=== PATIENT | female | born 1960 | race Caucasian/White ===

== ENCOUNTER 2017-05-03 09:45 | Inpatient (IN) | payer OTHER ==
[~2017-05-03] VITALS: Ht 165.1 cm; Wt 84.8 kg
[2017-07-10] MEDS ORDERED: VENL1TAB35 PO (08:13)
[2017-07-10] MEDS ORDERED: IBUP-1114 PO (08:13)
[2017-07-10] MEDS ORDERED: VENL37TA PO (08:13)
[2017-07-10] MEDS ORDERED: LISI-538 PO (08:13)
[2017-07-10] MEDS ORDERED: NYQU1LIQ PO (08:34)
[2017-07-18] VITALS (8 sets, daily range): BP systolic 116–162; BP diastolic 60–91; O2SAT 95
[2017-07-18] MEDS ORDERED: LR 1,000 ML IV ONE (07:15)
[2017-07-18] MEDS ORDERED: TRANEXAMIC ACID 100 MG/ML 10ML VIAL IV ONE (07:15)
[2017-07-18] MEDS ORDERED: VANCOMYCIN HCL 1,000 MG, VIAL MATE ADAPTER 1 EACH in D5W 250 ML IV ONE (07:15)
[2017-07-18] MEDS ORDERED: NICODIS2 TD (07:48)
[2017-07-18] MEDS ORDERED: MIDAZOLAM INJ 2 MG/2 ML VIAL (J2250) As Ordered ONE ×3 (08:41→10:01)
[2017-07-18] MEDS ORDERED: fentaNYL 100 MCG/2 ML INJECTION (J3010) As Ordered ONE ×3 (08:41→12:28)
[2017-07-18] MEDS: NICOTINE 14 MG/24 HR TRANSDERMAL TD SCH (09:00)
[2017-07-18] MEDS: fentaNYL 100 MCG/2 ML INJECTION (J3010) IV SCH ×2 (09:05→09:11)
[2017-07-18] MEDS: MIDAZOLAM INJ 2 MG/2 ML VIAL (J2250) IV SCH ×2 (09:06→09:11)
[2017-07-18] MEDS ORDERED: CLINDAMYCIN INJ 900MG/6ML VIAL As Ordered ONE (09:15)
[2017-07-18] MEDS ORDERED: TRANEXAMIC ACID 100 MG/ML 10ML VIAL As Ordered ONE ×2 (09:15→09:26)
[2017-07-18] MEDS ORDERED: BUPIVACAINE LIPOSOME/PF 1.3% 20 ML VIAL (13.3MG/ML)(EXPAREL) As Ordered ONE (09:16)
[2017-07-18] MEDS ORDERED: PROPOFOL 200 MG/20 ML VIAL As Ordered ONE ×2 (09:20→10:42)
[2017-07-18] MEDS ORDERED: PHENYLEPHRINE INJ 10MG/ML VIAL (J2370) As Ordered ONE ×2 (10:01→10:42)
[2017-07-18] MEDS: fentaNYL 100 MCG/2 ML INJECTION (J3010) IV PRN ×8 (12:32→13:16)
[2017-07-18] MEDS ORDERED: PERCOCET 5MG/325MG TAB PO PRN ×2 (12:45)
[2017-07-18] MEDS ORDERED: METOCLOPRAMIDE INJ 10MG/2ML VIAL (J2765) IV PRN (12:45)
[2017-07-18] MEDS ORDERED: ONDANSETRON 4MG/2ML VIAL (J2405) IV PRN ×2 (12:45→13:00)
[2017-07-18] MEDS ORDERED: MEPERIDINE INJ 25 MG/ML VIAL (J2175) IV PRN (12:45)
[2017-07-18] MEDS ORDERED: LR 1,000 ML IV SCH (12:45)
[2017-07-18] MEDS ORDERED: ACETAMINOPHEN TAB 650MG DOSE (2X325MG) PO PRN (13:00)
--- NOTE | 2017-07-18 13:21 | REP ---
Right knee three views post op: There is a total knee arthroplasty with the components tightly applied and in satisfactory positions alignment on all views. Signed by Rob Vogt MD 07/18/2017 01:12 P
[2017-07-18] MEDS ORDERED: ROPIvacaine 0.5% 30 ML INJECTION (J2795 PER 1MG) ONE (14:53)
[2017-07-18] MEDS ORDERED: EPINEPHrine INJ 1 MG/ML 1ML AMP ONE (14:53)
[2017-07-18] MEDS: VANCOMYCIN HCL 1,000 MG, VIAL MATE ADAPTER 1 EACH in D5W 250 ML IV SCH ×2 (15:39→23:22)
[2017-07-18] MEDS: LISINOPRIL 20 MG TAB PO SCH (15:39)
[2017-07-18] MEDS: KETOROLAC 30 MG/ML VIAL (J1885) IV SCH ×2 (15:40→20:38)
[2017-07-18] MEDS: PERCOCET 5MG/325MG TAB PO PRN (18:24)
[2017-07-18] MEDS: CelecoXIB (CeleBREX) 100 MG CAP PO SCH (20:39)
--- NOTE | 2017-07-18 23:23 | RO ---
DATE OF PROCEDURE: 07/18/2017 PREOPERATIVE DIAGNOSIS: Right knee osteoarthritis. POSTOPERATIVE DIAGNOSIS: Right knee osteoarthritis. PROCEDURE PERFORMED: Right total knee arthroplasty. SURGEON: Luis Enrique Michaels MD ROLL TABLE OPERATOR: LING Sheth ANESTHESIA PROVIDER: Dr. Monique ANESTHESIA GIVEN: A single-shot adductor canal nerve block and a single-shot spinal. ANTIBIOTICS: 1 gram intravenous (IV) vancomycin given within 1 hour of incision. TOTAL TOURNIQUET TIME: 81 minutes 250 mmHg right thigh. IMPLANT USED: DePuy Sigma PFC size 2.5 cruciate-retaining femur, size 2.5 fixed-bearing tibia, with 10-mm polyethylene and 32-mm x 8-mm patellar polyethylene. COMPLICATIONS: None. ESTIMATED BLOOD LOSS: 100 mL. SPECIMEN SENT TO THE LABORATORY: Right knee bone. INDICATION FOR PROCEDURE: Lacey Cerrato is a 56-year-old female with longstanding right knee osteoarthritis, who has had a persistent increasing activity-limiting pain and has failed appropriate nonoperative management of knee osteoarthritis, to include activity modification, medication, exercise therapy, maintenance of healthy body weight, and injections, and has had persistent symptoms. I discussed with the patient the risks, benefits, indications, and alternatives of operative versus nonoperative management, and the patient elected to proceed with right total knee arthroplasty. Informed consent was obtained. INTRAOPERATIVE FINDINGS: There was significant tricompartmental osteoarthritis. The knee had a full passive range of motion and was stable after implants were placed. DESCRIPTION OF PROCEDURE: The patient was positively identified in the preoperative holding area, where the surgical site was marked. She was then brought to the operating room after being given adductor canal nerve block. She was given single-shot spinal anesthesia in the operating room. She was positioned supine on a regular table with all bony prominences appropriately padded. Sequential compression devices (SCDs) were placed on the nonoperative extremity for deep venous thrombosis (DVT) prophylaxis. She was prepped and draped in the usual sterile fashion. A final time-out was performed. I made a 15 cm incision longitudinally just medial to the midline of the knee. I dissected through skin and subcutaneous tissue. I created a medial skin flap to expose the medial retinaculum and vastus medialis obliquus (VMO). I then performed a medial parapatellar arthrotomy using the Bovie. On making the medial parapatellar arthrotomy, I dissected through the medial meniscus. I then performed a limited medial release with a combination of Bovie and curved osteotome. I then resected the synovium and fat pad of the anterior aspect of the distal femur. I then also resected part of the patellar fat pad. I performed a limited lateral release around the proximal tibial plateau over to Gerdy tubercle. This allowed for knee flexion and eversion of the patella. I then introduced the intramedullary drill for the femur and placed the intramedullary distal femoral cutting guide set to a 5-degree valgus cut and 10-mm thickness. The distal femur cut was made in standard fashion. This was then followed by placing the 3-degree externally rotated posterior referencing guide onto the distal femur and sized to a 2.5. The 4-in-1 cutting block, size 2.5, was then placed; and the anterior, posterior, and chamfer cuts were made on the distal femur in standard fashion. All osteophytes were removed from the distal femur. After completion of the femoral cuts, I then performed a resection of the anterior cruciate ligament (ACL) and resected the medial and lateral menisci. I then placed the extramedullary tibial guide and with appropriate slope, and I confirmed that it was perpendicular to the long axis of the tibia. After appropriately sizing the proximal tibial cut, the cutting block was placed, and the proximal tibia cut was made. The original proximal tibia was removed from the knee. After completion of the femoral and tibial cuts, I then introduced the curved osteotome and resected osteophytes from the posterior distal femur, both medially and laterally. At this point, I also took the opportunity to check the flexion gap, which was noted to be balanced. I then introduced the sizing blocks and found that the knee was well balanced with a 10-mm sizing block in both flexion and extension. Therefore, I elected to use a 10-mm polyethylene. At this point, I then performed the patellar resection. The patella was measured to approximately 22 mm in thickness. 8 mm was resected and replaced with 8-mm x 32-mm polyethylene. The drill holes for the patellar polyethylene were then drilled for later placement. The patellar trial was placed. I then placed a 2.5 size femoral trial. I then placed the tibial trial and floated the tibial tray to aid with placement of the tibial tray. The knee was noted to be tracking extremely well with the no-hands technique. After confirmation of the position and sizing of the proximal tibial tray, the charter pilot holes for both the femur and the tibia, including reaming for the keel, was performed. At this point, cement was mixed. The knee was thoroughly irrigated with normal saline to remove all blood and debris from the cancellous bone. At this opportunity, approximately 20 mL of Exparel expanded in 60 mL of saline was injected into the posterior capsule posterior cruciate ligament (PCL) medial and lateral periosteum and retinaculum was injected for later pain control. After completion of this, the femur and tibia and patella were thoroughly dried, and the size 2.5 fixed-bearing tibial tray with 10-mm polyethylene were inserted followed by implanting of the femoral component. The cement debris was removed from the knee that was brought into extension. Then, the patellar polyethylene was inserted. After all components were implanted and the cement was dried, the knee was brought through a range of motion and noted to be tracking excellently and was stable in both flexion and extension. At this point, about 2 grams of topical tranexamic acid (TXA) was applied into the wound, and the tourniquet was let down, 81 minutes. Hemostasis was obtained using Bovie electrocautery. The wound was then thoroughly irrigated with normal saline and closed in layers. The retinacular layer was closed with interrupted 0 Vicryl suture in figure-of-8 fashion, followed by a running barbed suture to obtain a watertight closure. This was then followed by an interrupted buried 2-0 Vicryl suture for the subcutaneous layer. Running 3-0 Monocryl for the skin. A Prineo Dermabond dressing was applied, followed by additional sterile dressing. This ended the procedure. I was present and scrubbed in for all critical portions of the case. POSTOPERATIVE PLAN: The patient will be weightbearing as tolerated to the right lower extremity. She will undergo total knee arthroplasty rehabilitation protocol. She will be admitted to the hospital for pain control and working with physical therapy, and she will be discharged home when criteria met. She will be on intravenous (IV) antibiotics for 24 hours after surgery and Lovenox for deep venous thrombosis (DVT) prophylaxis. BRIJESH
[2017-07-19] MEDS: PERCOCET 5MG/325MG TAB PO PRN ×4 (00:19→17:59)
[2017-07-19] MEDS: KETOROLAC 30 MG/ML VIAL (J1885) IV SCH ×4 (03:08→20:21)
[2017-07-19 06:00] VITALS: BP 108/69
[2017-07-19 06:52] LABS: MEAN CORPUSCULAR HEMOGLOBIN 27.7 pg (27.0-33.0); MEAN CORPUSCULAR HGB CONC 32.1 g/dl (32.0-36.5); MEAN CORPUSCULAR VOLUME 86.2 fl (80.0-96.0); PLATELET COUNT, AUTOMATED 297 10^3/uL (150-450); RED CELL DISTRIBUTION WIDTH 14.4 % (11.5-14.5); WHITE BLOOD COUNT 6.7 10^3/uL (4.0-10.0)
--- NOTE | 2017-07-19 06:58 | IPNPDOC ---
Date Seen The patient was seen on 07/19/17. Progress Note SUBJECTIVE: Patient is a 56 y/o female POD1 s/p R TKA. Patient seen and examined overnight. No acute overnight events. Has gotten up to the restroom on her own and voided spontaneously. OBJECTIVE PHYSICAL EXAMINATION: VITAL SIGNS: Please see below. GENERAL: well nourished female, no acute distress CARDIOVASCULAR: 2+ DP/PT pulses, BCR all digits RLE. RESPIRATORY: non labored breathing. EXTREMITIES: RLE dressing in place, c/d/i. able to perform SLR. Full active ankle ROM NEUROLOGICAL: Sensation/motor intact in all RLE distributions LABORATORY DATA: Please see below. IMAGING: Post op films demonstrate well fixed TKA components DVT prophylaxis ordered?: Lovenox ASSESSMENT : This is a 56 y/o female POD1 s/p R TKA doing well PLAN: 1. WBAT RLE 2. PT for ambulation 3. Lovenox for DVT prophylaxis 4. Dressing down tomorrow 5. d/c labs DISPOSITION: likely d/c home tomorrow. VS, I&O, [facility], [facility] Vital Signs/I&O Vital Signs Date Time Temp Pulse Resp B/P (MAP) Pulse Ox O2 Delivery O2 Flow Rate FiO2 07/19/17 06:07 16 07/18/17 22:00 96.8 68 116/64 (81) 98 Room Air 07/18/17 21:00 2.0 Laboratory Data 24H LABS Laboratory Tests 2 07/19/17 06:33: ALANNA ROQUE MD Jul 19, 2017 06:58
[2017-07-19 07:07] LABS: INR 0.99
[2017-07-19] MEDS: CelecoXIB (CeleBREX) 100 MG CAP PO SCH ×2 (08:19→20:20)
[2017-07-19] MEDS: LISINOPRIL 20 MG TAB PO SCH (08:19)
[2017-07-19] MEDS: ENOXAPARIN 40 MG/0.4 ML SYRINGE (J1650) SC SCH (08:20)
[2017-07-19] MEDS: VANCOMYCIN HCL 1,000 MG, VIAL MATE ADAPTER 1 EACH in D5W 250 ML IV SCH (08:20)
[2017-07-19] MEDS: NICOTINE 14 MG/24 HR TRANSDERMAL TD SCH (08:21)
[2017-07-19 10:00] VITALS: BP 115/75
[2017-07-19 14:00] VITALS: BP 120/67
[2017-07-19 18:00] VITALS: BP 118/70
[2017-07-19 22:00] VITALS: BP 158/92
[2017-07-20] MEDS: PERCOCET 5MG/325MG TAB PO PRN ×3 (00:01→12:16)
[2017-07-20] MEDS: KETOROLAC 30 MG/ML VIAL (J1885) IV SCH ×3 (03:08→10:12)
[2017-07-20 06:00] VITALS: BP 152/73
--- NOTE | 2017-07-20 07:01 | IPNPDOC ---
Date Seen The patient was seen on 07/20/17. Progress Note SUBJECTIVE: Patient is a 56 y/o female POD2 s/p R TKA. Patient seen and examined overnight. No acute overnight events. Ambulated with PT yesterday. Pain well controlled. OBJECTIVE PHYSICAL EXAMINATION: VITAL SIGNS: Please see below. GENERAL: well nourished female, no acute distress CARDIOVASCULAR: 2+ DP/PT pulses, BCR all digits RLE. RESPIRATORY: non labored breathing. EXTREMITIES: RLE dressing removed, wound c/d/i. able to perform SLR with mild extensor lag. Full active ankle ROM. Knee ROM 0-50 NEUROLOGICAL: Sensation/motor intact in all RLE distributions LABORATORY DATA: Please see below. IMAGING: Post op films demonstrate well fixed TKA components DVT prophylaxis ordered?: Lovenox ASSESSMENT : This is a 56 y/o female POD2 s/p R TKA doing well PLAN: 1. WBAT RLE 2. PT for ambulation 3. Lovenox for DVT prophylaxis, will teach self administration today DISPOSITION: d/c home later today. VS, I&O, 24H, [facility] Vital Signs/I&O Vital Signs Date Time Temp Pulse Resp B/P (MAP) Pulse Ox O2 Delivery O2 Flow Rate FiO2 07/20/17 06:29 16 97 Room Air 07/20/17 06:00 97.4 89 152/73 (99) 07/18/17 21:00 2.0 ALANNA ROQUE MD Jul 20, 2017 07:01
--- NOTE | 2017-07-20 07:02 | DS.PDOC ---
Discharge Summary General Date of Admission Jul 18, 2017 at 06:56 Date of Discharge 07/20/17 Attending Physician: ALANNA ROQUE MD Discharge Summary PROCEDURES PERFORMED DURING STAY: Right total knee arthroplasty 07/18/2017. ADMITTING DIAGNOSES: 1. Right knee osteoarthritis DISCHARGE DIAGNOSES: 1. Right knee osteoarthritis COMPLICATIONS/CHIEF COMPLAINT: Right Knee Osteoarthritis. HISTORY OF PRESENT ILLNESS: Patient is a 56 year old female with long standing right knee osteoarthritis admitted for right total knee arthroplasty. HOSPITAL COURSE: Patient underwent uneventful above procedure on the day of admission. She was admitted to the hospital floor for post op pain control and, physical therapy. On the day of discharge, she was ambulating with a walker, pain was controlled, she was tolerating PO intake, voiding spontaneously, and had demonstrated proficiency in self administration of lovenox. DISCHARGE MEDICATIONS: Please see below. ALLERGIES: Please see below. PHYSICAL EXAMINATION ON DISCHARGE: VITAL SIGNS: Please see below. GENERAL: No acute distress CARDIOVASCULAR EXAMINATION: 2+ DP/PT pulses LLE RESPIRATORY EXAMINATION: Non labored breathing EXTREMITIES: R knee wound well healed, clean, dry, intact. Knee ROM 0-50 degrees LABORATORY DATA: Please see below. IMAGING: Post op radiographs demonstrate well fixed total knee arthroplasty components PROGNOSIS: Good ACTIVITY: As tolerated. DIET: Regular. DISCHARGE PLAN: Discharge to home DISPOSITION: 01 Home, Self-Care. DISCHARGE CONDITION: Stable. Vital Signs/I&Os Vital Signs Date Time Temp Pulse Resp B/P (MAP) Pulse Ox O2 Delivery O2 Flow Rate FiO2 07/19/17 18:31 16 07/19/17 18:00 98.0 90 118/70 (86) 97 Room Air 07/18/17 21:00 2.0 I&O- Last 24 Hours up to 6 AM 07/20/17 06:00 Intake Total 1020 ml Output Total 0 ml Balance 1020 ml Laboratory Data Labs 24H Laboratory Tests 2 07/19/17 06:33: Nucleated Red Blood Cells % (auto) 0.0, Prothrombin Time 13.2, Prothromb Time International Ratio 0.99 CBC/BMP Laboratory Tests 07/19/17 06:33 Red Blood Count 4.41, Mean Corpuscular Volume 86.2, Mean Corpuscular Hemoglobin 27.7, Mean Corpuscular Hemoglobin Concent 32.1, Red Cell Distribution Width 14.4 Discharge Medications Scheduled Lisinopril (Lisinopril) 20 Mg Tab, 20 MG PO QAM, (Reported) Nicotine (Nicotine Step 2) 14 Mg/24 Hr Dis, 14 MG TD DAILY, (Reported) Venlafaxine HCl (Venlafaxine HCl) 25 Mg Tab, 75 MG PO Q2D, (Reported) OPPOSITE DAYS OF 37.5 Venlafaxine HCl (Venlafaxine HCl) 37.5 Mg Tab, 37.5 MG PO Q2D, (Reported) OPPOSITE DAYS OF 75MG Allergies Coded Allergies: Penicillins (Verified Allergy, Intermediate, ITCHING,HEART RACING, ) ALANNA ROQUE MD Jul 19, 2017 21:07
[2017-07-20 07:24] LABS: INR 1.08
[2017-07-20 08:15] VITALS: BP 152/73
[2017-07-20] MEDS: CelecoXIB (CeleBREX) 100 MG CAP PO SCH (08:15)
[2017-07-20] MEDS: LISINOPRIL 20 MG TAB PO SCH (08:15)
[2017-07-20] MEDS: ENOXAPARIN 40 MG/0.4 ML SYRINGE (J1650) SC SCH (08:15)
[2017-07-20] MEDS: NICOTINE 14 MG/24 HR TRANSDERMAL TD SCH (08:16)
== END 2017-07-20 13:10 | disposition home or self-care (01) | DRG 470 ==
LOC: M OR 07-18 06:56 → M MS5PR 07-18 13:40
PROVIDERS: ADMIT Orthopaedic Surgery; ATTEND Orthopaedic Surgery
PROC: 0SRC0J9 Replacement of Right Knee Joint with Synthetic Substitute, Cemented, Open Approach (ICD-10-PCS; principal; 2017-07-18 09:30)
DX: M17.11 Unilateral primary osteoarthritis, right knee (principal)

== ENCOUNTER → 2017-07-12 | Outpatient (CLI) | payer OTHER ==
[~2017-07-12] MED LIST: IBUP-1114 PO; LISI-538 PO; NICODIS2 TD; NYQU1LIQ PO; VENL1TAB35 PO; VENL37TA PO
--- NOTE | 2017-07-12 18:18 | ECGEPIP ---
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 Somewhat low voltages with RSR prime in V1, persistent S waves in V5 and V6, and small inferior Q waves; Body habitus versus pulmonary disease Rule out prior IWMI. No prior tracing for comparison Electronically Signed On 07-12-2017 18:17:52 EST by Akash Dupree
--- NOTE | 2017-07-13 06:13 | REP ---
CHEST X-RAY: CLINICAL: Preoperative assessment. COMPARISON: None. FINDINGS: Mediastinum and cardiac silhouette are normal. Lung sharp demonstrate chronic appearing interstitial changes. Small 9 mm presumed calcified granuloma in the right lung base suggested. No further consolidation, effusion or pneumothorax. Airway is midline and patent. Skeletal structures are intact. IMPRESSION: Chronic appearing interstitial changes. Suspected small nodule/granuloma in the right lung base. No prior exam for comparison. Consider followup chest CT if necessary. Signed by Roge Sumner MD 07/14/2017 08:35 A
== END ==
LOC: M LAB 14:27
PROVIDERS: ATTEND Orthopaedic Surgery
DX: Z01.818 Encounter for other preprocedural examination (principal); M17.11 Unilateral primary osteoarthritis, right knee; Z88.0 Allergy status to penicillin; R94.31 Abnormal electrocardiogram [ECG] [EKG]

== ENCOUNTER → 2017-07-12 | Outpatient (CLI) | payer OTHER ==
[2017-07-12 16:16] LABS: ANION GAP 6 MEQ/L (8-16); BLOOD UREA NITROGEN 15 MG/DL (7-18); CALCIUM LEVEL 8.6 MG/DL (8.5-10.1); CARBON DIOXIDE LEVEL 31 MEQ/L (21-32); CHLORIDE LEVEL 103 MEQ/L (98-107); CREATININE FOR GFR 0.76 MG/DL (0.55-1.02); GLOMERULAR FILTRATION RATE > 60.0 (>51); GLUCOSE, FASTING 112 MG/DL (70-105); SODIUM LEVEL 140 MEQ/L (136-145)
== END ==
LOC: M LAB 14:43
PROVIDERS: ATTEND Anesthesiology
DX: Z01.818 Encounter for other preprocedural examination (principal); M17.11 Unilateral primary osteoarthritis, right knee; I10 Essential (primary) hypertension